=== PATIENT | male | born 1965 | race Caucasian/White ===

== ENCOUNTER 2022-12-05 21:20 | Emergency (ER) | payer BC ==
[2022-12-05 21:23] VITALS: BP 143/89; PULSE 67; RESP 18; TEMP 98.4; BMI 22.8
[2022-12-05] MEDS ORDERED: RABIES IMMUNE GLOBULIN 300 UNITS/1 ML VIAL IM ONE (22:48)
[2022-12-05] MEDS ORDERED: RABIES VACCINE (PCEC)/PF 2.5 UNIT/VIAL IM ONE ×2 (22:49→22:54)
[2022-12-05] MEDS ORDERED: AMOX TR/POT CLAV 875MG/125MG TABLETS (FP) PO ONE (22:52)
[2022-12-05] MEDS ORDERED: RABIES IMMUNE GLOBULIN 300 UNITS/1 ML VIAL ONE (22:53)
[2022-12-05] MEDS ORDERED: AMOX TR/POT CLAV 875MG/125MG TABLETS (FP) ONE (22:53)
[2022-12-05] MEDS ORDERED: DIPHTH,PERTUSS(ACELL),TET 0.5 ML DISP.SYRIN IM ONE ×2 (22:53→22:54)
== END 2022-12-05 23:39 | disposition home or self-care (01) ==
LOC: JER 21:20 → JERFT 21:20
PROC: 3E0234Z Introduction of Serum, Toxoid and Vaccine into Muscle, Percutaneous Approach (ICD-10-PCS; principal; 2022-12-05)
DX: Z04.3 Encounter for examination and observation following other accident (principal)
CPT/HCPCS: 90375; 90675; 90715; 99282-25

== ENCOUNTER 2022-12-08 08:12 | Emergency (ER) | payer BC ==
[2022-12-08 08:16] VITALS: BP 116/64; PULSE 77; RESP 18; TEMP 98; BMI 22.8
[2022-12-08] MEDS ORDERED: RABIES VACCINE (PCEC)/PF 2.5 UNIT/VIAL IM ONE ×2 (08:23→08:26)
== END 2022-12-08 09:45 | disposition home or self-care (01) ==
LOC: JERFT 08:12
PROC: 3E0234Z Introduction of Serum, Toxoid and Vaccine into Muscle, Percutaneous Approach (ICD-10-PCS; principal; 2022-12-08)
DX: Z29.14 Encounter for prophylactic rabies immune globulin (principal); S61.259D Open bite of unspecified finger without damage to nail, subsequent encounter; W55.81XD Bitten by other mammals, subsequent encounter
CPT/HCPCS: 90675; 99281-25

== ENCOUNTER 2022-12-12 07:54 | Emergency (ER) | payer BC ==
[2022-12-12 08:04] VITALS: BP 112/67; PULSE 71; RESP 18; TEMP 98.2; BMI 22.8
[2022-12-12] MEDS ORDERED: RABIES VACCINE (PCEC)/PF 2.5 UNIT/VIAL IM ONE ×2 (09:06→09:10)
== END 2022-12-12 09:47 | disposition home or self-care (01) ==
LOC: JERFT 07:54 → JER 07:54 → JERFT 09:45
PROC: 3E0234Z Introduction of Serum, Toxoid and Vaccine into Muscle, Percutaneous Approach (ICD-10-PCS; principal; 2022-12-12)
DX: Z20.3 Contact with and (suspected) exposure to rabies (principal)
CPT/HCPCS: 90675; 99281-25

== ENCOUNTER 2022-12-19 17:38 | Emergency (ER) | payer BC ==
[2022-12-19 17:43] VITALS: BP 118/74; PULSE 66; RESP 16; TEMP 98.3; BMI 22.8
[2022-12-19] MEDS ORDERED: RABIES VACCINE (PCEC)/PF 2.5 UNIT/VIAL IM ONE ×2 (17:52→18:00)
== END 2022-12-19 18:16 | disposition home or self-care (01) ==
LOC: JERFT 17:38
PROC: 3E0234Z Introduction of Serum, Toxoid and Vaccine into Muscle, Percutaneous Approach (ICD-10-PCS; principal; 2022-12-19)
DX: Z23 Encounter for immunization (principal)
CPT/HCPCS: 90675; 99281-25